=== PATIENT | male | born 1975 | race Caucasian/White ===

== ENCOUNTER 2019-12-19 09:30 | Outpatient (CLI) | payer OTHER ==
--- NOTE | 2019-12-19 09:54 | RAD ---
Exam: XR Foot Rt 3 View STANDARD HISTORY: Right heel pain and foot pain COMPARISON: None FINDINGS: Sclerotic density is seen within the distal phalanx right great toe probably attributable to a bone i sland. No acute fracture, dislocation, or other acute osseous abnormality is identified. IMPRESSION: No acute osseous abnormality is identified.
== END 2019-12-19 09:31 | disposition home or self-care (01) ==
LOC: RAD-FRANK 09:30
PROVIDERS: ATTEND Nurse Practitioner Family
DX: Z00.01 Encounter for general adult medical examination with abnormal findings (principal); M79.671 Pain in right foot